=== PATIENT | female | born 1980 | race Caucasian/White ===

== ENCOUNTER 2018-01-01 19:53 | Emergency (ER) | payer OTHER ==
[~2018-01-01] VITALS: Ht 162.6 cm; Wt 92.9 kg
[~2018-01-01 19:53] MED LIST: CHIL100S PO; IBUP800T23 PO; ROBA750T3 PO; TYLCOD5S PO; ZITH250T PO
[2018-01-01 19:59] VITALS: BP 131/93; PULSE 97; RESP 20; TEMP 98.7; O2SAT 100
--- NOTE | 2018-01-01 20:39 | PD ---
HPI Chief Complaint: Bleeding Time Seen by Provider: 20:35 Travel History International Travel<30 days: No Contact w/Intl Traveler<30days: No Traveled to known affect area: No History of Present Illness HPI 37-year-old female patient with history of tubal ligation, presents to the ER today with heavy vaginal bleeding for the last 2 weeks, using multiple packs of tampons, here because she states that today she started feeling lightheaded like she was going to pass out. She denies any fevers, or other symptoms. She states that she has history of heavy menses but never this heavy before. Modifying Factors: None Associated Signs & Symptoms: Heavy vaginal bleeding for 2 weeks, lightheadedness Risk Factors: None PFSH Past Medical History ?: Unknown Social History Tobacco Use: No Allergies-Medications (Allergen,Severity, Reaction): Coded Allergies: amoxicillin (Unverified Allergy, Severe, HIVES, 07/07/17) Reported Meds & Prescriptions Reported Meds & Active Scripts Active Reported Centrum (Multiple Vitamins W/ Minerals) 1 Chew 1 Tab CHEW DAILY Review of Systems Except as stated in HPI: all other systems reviewed are Neg Physical Exam Narrative GENERAL: Well-developed young female patient currently in mild distress. Awake and oriented 3. SKIN: Focused skin assessment warm/dry. HEAD: Atraumatic. Normocephalic. EYES: Pupils equal and round. No scleral icterus. No injection or drainage. ENT: No nasal bleeding or discharge. Mucous membranes pink and moist. NECK: Trachea midline. No JVD. CARDIOVASCULAR: Regular rate and rhythm. No murmur appreciated. RESPIRATORY: No accessory muscle use. Clear to auscultation. Breath sounds equal bilaterally. GASTROINTESTINAL: Abdomen soft, mild pelvic tenderness without guarding or rebound, nondistended. Hepatic and splenic margins not palpable. GENITOURINARY: Normal external genitalia without lesions or erythema. Vaginal vault with blood but no significant drainage. Cervical os was closed without drainage. No cervical motion tenderness. Uterus nontender and nonenlarged. Bilateral adnexa nontender without masses. MUSCULOSKELETAL: No obvious deformities. No clubbing. No cyanosis. No edema. NEUROLOGICAL: Awake and alert. No obvious cranial nerve deficits. Motor grossly within normal limits. Normal speech. PSYCHIATRIC: Appropriate mood and affect; insight and judgment normal. Data Data Last Documented VS Vital Signs Date Time Temp Pulse Resp B/P (MAP) Pulse Ox O2 Delivery O2 Flow Rate FiO2 01/01/18 21:49 74 16 141/80 (100) 100 Room Air 01/01/18 19:59 98.7 Orders Orders Complete Blood Count With Diff (01/01/18 20:25) Basic Metabolic Panel (Bmp) (01/01/18 20:25) Urinalysis - C+S If Indicated (01/01/18 20:25) Ed Urine Pregnancytest Poc (01/01/18 20:25) Type And Screen (01/01/18 20:35) Ed Discharge Order (01/01/18 21:51) Labs Laboratory Tests Test 01/01/18 20:25 01/01/18 20:30 Urine Color NICOLA Urine Turbidity MOD Urine pH 5.5 Urine Specific Hope 1.027 Urine Protein 30 mg/dL Urine Glucose (UA) NEG mg/dL Urine Ketones NEG mg/dL Urine Occult Blood LARGE Urine Nitrite NEG Urine Bilirubin NEG Urine Leukocyte Esterase NEG Urine RBC 100-200 /hpf Urine WBC 0-2 /hpf Urine Squamous Epithelial Cells 0-5 /hpf Urine Mucus FEW /lpf Microscopic Urinalysis Comment CULT NOT INDICATED White Blood Count 8.8 TH/MM3 Red Blood Count 4.25 MIL/MM3 Hemoglobin 9.4 GM/DL Hematocrit 29.2 % Mean Corpuscular Volume 68.7 FL Mean Corpuscular Hemoglobin 22.2 PG Mean Corpuscular Hemoglobin Concent 32.4 % Red Cell Distribution Width 17.7 % Platelet Count 301 TH/MM3 Mean Platelet Volume 7.8 FL Neutrophils (%) (Auto) 67.9 % Lymphocytes (%) (Auto) 22.3 % Monocytes (%) (Auto) 6.0 % Eosinophils (%) (Auto) 1.8 % Basophils (%) (Auto) 2.0 % Neutrophils # (Auto) 5.9 TH/MM3 Lymphocytes # (Auto) 2.0 TH/MM3 Monocytes # (Auto) 0.5 TH/MM3 Eosinophils # (Auto) 0.2 TH/MM3 Basophils # (Auto) 0.2 TH/MM3 CBC Comment AUTO DIFF Differential Comment AUTO DIFF CONFIRMED Platelet Estimate NORMAL Platelet Morphology Comment NORMAL Spherocytes 1+ Ovalocytes 1+ Blood Urea Nitrogen 9 MG/DL Creatinine 0.79 MG/DL Random Glucose 109 MG/DL Calcium Level 8.0 MG/DL Sodium Level 137 MEQ/L Potassium Level 3.6 MEQ/L Chloride Level 106 MEQ/L Carbon Dioxide Level 25.5 MEQ/L Anion Gap 6 MEQ/L Estimat Glomerular Filtration Rate 83 ML/MIN MDM Medical Decision Making Medical Screen Exam Complete: Yes Emergency Medical Condition: Yes Medical Record Reviewed: Yes Interpretation(s) Laboratory Tests Test 01/01/18 20:25 01/01/18 20:30 Urine Color NICOLA (YELLW/STRAW) Urine Turbidity MOD (CLEAR) Urine Protein 30 mg/dL (NEG-TRACE) Urine Occult Blood LARGE (NEG) Urine RBC 100-200 /hpf (0-3) Urine Mucus FEW /lpf (OCC) Hemoglobin 9.4 GM/DL (11.6-15.3) Hematocrit 29.2 % (35.0-46.0) Mean Corpuscular Volume 68.7 FL (80.0-100.0) Mean Corpuscular Hemoglobin 22.2 PG (27.0-34.0) Red Cell Distribution Width 17.7 % (11.6-17.2) Spherocytes 1+ (NORMAL) Ovalocytes 1+ (NORMAL) Random Glucose 109 MG/DL (74-106) Calcium Level 8.0 MG/DL (8.5-10.1) Estimat Glomerular Filtration Rate 83 ML/MIN (>89) Differential Diagnosis Heavy vaginal bleeding, cramping: Dysfunctional uterine bleeding versus threatened AB versus ectopic Narrative Course Hemoglobin is 9. Vital signs are stable in the ER. Pelvic exam shows some blood but not heavily bleeding currently. At this point, my plan would be to release her with follow-up to [facility]. We will try some OCP for hormonal control. Return for any worsening in bleeding or new symptoms as needed. The plan has been discussed with her and she states understanding. Diagnosis Primary Impression: Dysfunctional uterine bleeding Med/Other Pt SpecificInfo: Prescription(s) given Scripts Norethindrone-Ethinyl Estradiol (Ortho-Novum ) 1-35 Mg-Mcg Tab 1 TAB PO DAILY for Control, #1 PACK 0 Refills Prov: Amber Rausch MD 01/01/18 Disposition: 01 DISCHARGE HOME Condition: Stable Amber Rausch MD Jan 01, 2018 20:39
[2018-01-01] MEDS ORDERED: CENTCHW4 CHEW (20:43)
[2018-01-01 20:52] LABS: AUTOMATED NEUTROPHIL # 5.9 TH/MM3 (1.8-7.7); BASOPHIL # 0.2 TH/MM3 (0-0.2); EOSINOPHIL # 0.2 TH/MM3 (0-0.4); EOSINOPHIL % 1.8 % (0.0-4.0); HEMATOCRIT 29.2 % (35.0-46.0); HEMOGLOBIN 9.4 GM/DL (11.6-15.3); LYMPH % 22.3 % (9.0-44.0); MEAN CELL VOLUME 68.7 FL (80.0-100.0); MEAN CORPUSCULAR HEMOGLOBIN 22.2 PG (27.0-34.0); MEAN CORPUSCULAR HGB CONC 32.4 % (32.0-36.0); MEAN PLATELET VOLUME 7.8 FL (7.0-11.0); MONOCYTE # 0.5 TH/MM3 (0-0.9); NEUT % 67.9 % (16.0-70.0); PLATELET COUNT 301 TH/MM3 (150-450); RED BLOOD COUNT 4.25 MIL/MM3 (4.00-5.30); RED CELL DISTRIBUTION WIDTH 17.7 % (11.6-17.2); WHITE BLOOD COUNT 8.8 TH/MM3 (4.0-11.0)
[2018-01-01 21:03] LABS: BICARBONATE 25.5 MEQ/L (21.0-32.0)
[2018-01-01 21:05] LABS: BILIRUBIN, URINE NEG (NEG); BLOOD, URINE LARGE (NEG); GLUCOSE,URINE NEG (NEG); KETONE, URINE NEG (NEG); NITRITE,URINE NEG (NEG); PH, URINE 5.5 (5.0-8.5); URINE LEUKOCYTE ESTERASE NEG (NEG)
[2018-01-01 21:07] LABS: CREATININE 0.79 MG/DL (0.50-1.00)
[2018-01-01 21:16] LABS: MUCUS URINE FEW /lpf (OCC); RBC, URINE 100-200 /hpf (0-3); SQUAMOUS EPITHELIAL CELL URINE 0-5 /hpf (0-5); URINE COLOR AMBER (YELLW/STRAW)
[2018-01-01 21:17] LABS: WBC, URINE 0-2 /hpf (0-5)
[2018-01-01 21:33] LABS: OVALOCYTES 1+ (NORMAL)
[2018-01-01 21:34] LABS: SPHEROCYTES 1+ (NORMAL)
[2018-01-01 21:49] VITALS: BP 141/80; PULSE 74; RESP 16; O2SAT 100
[2018-01-01] MEDS ORDERED: ORTH1TAB PO (21:53)
== END 2018-01-01 22:04 | disposition home or self-care (01) ==
LOC: PHED 19:53
DX: N93.8 Other specified abnormal uterine and vaginal bleeding (principal); Z88.1 Allergy status to other antibiotic agents
CPT/HCPCS: 80048; 81001; 84703; 85025; 86850; 86900; 86901; 99284

== ENCOUNTER 2018-02-17 08:24 | Emergency (ER) | payer OTHER ==
[~2018-02-17] VITALS: Ht 162.6 cm; Wt 93.0 kg
[~2018-02-17 08:24] MED LIST changes: +CENTCHW4 CHEW; -CHIL100S PO; -IBUP800T23 PO; +ORTH1TAB PO; -ROBA750T3 PO; -TYLCOD5S PO; -ZITH250T PO
[2018-02-17 08:26] VITALS: BP 150/83; PULSE 78; RESP 16; TEMP 98.4; O2SAT 99
[2018-02-17] MEDS ORDERED: ZOFR4TAB3 SL (08:46)
--- NOTE | 2018-02-17 08:47 | PD ---
HPI Chief Complaint: GI Complaint Time Seen by Provider: 08:38 Travel History International Travel<30 days: No Contact w/Intl Traveler<30days: No Traveled to known affect area: No History of Present Illness HPI 37-year-old female is complaining of vomiting and diarrhea. Her symptoms started yesterday. She has been able to hold down liquids but has trouble eating. She has had some loose stools. She has not had fever. Apparently multiple people ordered workplace have been sick with a similar illness. She is generally healthy on no medications PFSH Past Medical History Anemia: Yes Reproductive: Yes ([employer]: 2ND ) ?: Not : 8 Para: 3 Miscarriage: 5 Ovarian Cysts: Yes Tubal Ligation: Yes Social History Alcohol Use: Yes ("SOCIALLY") Tobacco Use: No Substance Use: No Allergies-Medications (Allergen,Severity, Reaction): Coded Allergies: amoxicillin (Unverified Allergy, Severe, HIVES, 02/17/18) Reported Meds & Prescriptions Reported Meds & Active Scripts Active Ortho-Novum (Norethindrone-Ethinyl Estradiol) 1-35 Mg-Mcg Tab 1 Tab PO DAILY Reported Centrum (Multiple Vitamins W/ Minerals) 1 Chew 1 Tab CHEW DAILY Review of Systems General / Constitutional: No: Fever, Chills Eyes: No: Diploplia, Blurred Vision HENT: No: Headaches, Vertigo Cardiovascular: No: Chest Pain or Discomfort, Palpitations Respiratory: No: Cough Gastrointestinal: Positive: Nausea, Diarrhea Genitourinary: No: Urgency, Frequency Musculoskeletal: No: Myalgias, Arthralgias Skin: No Rash Hematologic/Lymphatic: No: Easy Bruising Physical Exam Narrative GENERAL: Well-developed female SKIN: Focused skin assessment warm/dry. HEAD: Atraumatic. Normocephalic. EYES: Pupils equal and round. No scleral icterus. No injection or drainage. ENT: No nasal bleeding or discharge. Mucous membranes pink and moist. NECK: Trachea midline. No JVD. CARDIOVASCULAR: Regular rate and rhythm. No murmur appreciated. RESPIRATORY: No accessory muscle use. Clear to auscultation. Breath sounds equal bilaterally. GASTROINTESTINAL: Abdomen soft, non-tender, nondistended. Hepatic and splenic margins not palpable. MUSCULOSKELETAL: No obvious deformities. No clubbing. No cyanosis. No edema. NEUROLOGICAL: Awake and alert. No obvious cranial nerve deficits. Motor grossly within normal limits. Normal speech. PSYCHIATRIC: Appropriate mood and affect; insight and judgment normal. Data Data Last Documented VS Vital Signs Date Time Temp Pulse Resp B/P (MAP) Pulse Ox O2 Delivery O2 Flow Rate FiO2 02/17/18 08:26 98.4 78 16 150/83 (105) 99 MDM Medical Decision Making Medical Screen Exam Complete: Yes Emergency Medical Condition: Yes Medical Record Reviewed: Yes Differential Diagnosis Differential includes gastroenteritis, dehydration, food poisoning Narrative Course Patient is not showing clinical signs of dehydration and has been able to hold down fluids. I do not think lab work or IV fluids are warranted at this time. I will prescribe some Zofran in case she has vomiting at home. I will recommend that she be off work until Wednesday Diagnosis Primary Impression: Gastroenteritis Departure Forms: Tests/Procedures, Work Release Enter return to work date: Feb 19, 2018 Scripts Ondansetron Odt (Zofran Odt) 4 Mg Tab 4 MG SL Q6HR Y for Nausea/Vomiting, #10 TAB 0 Refills Prov: Reymundo Rose MD 02/17/18 Disposition: DISCHARGE HOME Condition: Stable Reymundo Rose MD Feb 17, 2018 08:47
== END 2018-02-17 09:00 | disposition home or self-care (01) ==
LOC: PHED 08:24
DX: K52.9 Noninfective gastroenteritis and colitis, unspecified (principal)
CPT/HCPCS: 99283

== ENCOUNTER 2018-04-21 15:44 | Emergency (ER) | payer OTHER ==
[~2018-04-21] VITALS: Ht 160 cm; Wt 91.9 kg
[~2018-04-21 15:44] MED LIST changes: +ZOFR4TAB3 SL
[2018-04-21 16:10] VITALS: BP 128/72; TEMP 98.4; O2SAT 98
[2018-04-21 16:41] VITALS: BP 128/72; PULSE 82; RESP 16; TEMP 98.4; O2SAT 98
--- NOTE | 2018-04-21 17:54 | PD ---
HPI Chief Complaint: Cold / Flu Symptoms Time Seen by Provider: 17:35 Travel History International Travel<30 days: No Contact w/Intl Traveler<30days: No Traveled to known affect area: No History of Present Illness HPI 37-year-old female here with reported productive cough 1 week. She reports she has yellow sputum. Subjective fevers. No chest pain or shortness of breath. Symptom severity is moderate. Unrelieved by [id number] cough and cold medications. PFSH Past Medical History Anemia: Yes Cardiovascular Problems: Yes (htn on meds) Reproductive: Yes ([employer]: 2ND ) Tetanus Vaccination: > 5 Years Influenza Vaccination: No ?: Not LMP: 12/12/17 : 8 Para: 3 Miscarriage: 5 Ovarian Cysts: Yes Tubal Ligation: Yes Social History Alcohol Use: Yes ("SOCIALLY") Tobacco Use: Yes (5 cigs daily) Substance Use: No Allergies-Medications (Allergen,Severity, Reaction): Coded Allergies: amoxicillin (Unverified Allergy, Severe, HIVES, 04/21/18) Uncoded Allergies: all cillins (Allergy, Mild, rash, 04/21/18) Reported Meds & Prescriptions Reported Meds & Active Scripts Active Reported Centrum (Multiple Vitamins W/ Minerals) 1 Chew 1 Tab CHEW DAILY Review of Systems Except as stated in HPI: all other systems reviewed are Neg General / Constitutional: Positive: Fever Eyes: No: Visual changes HENT: No: Headaches Cardiovascular: No: Chest Pain or Discomfort Respiratory: Positive: Cough Gastrointestinal: No: Abdominal Pain Physical Exam Narrative GENERAL: Alert and well-appearing 37-year-old female SKIN: Warm and dry. HEAD: Normocephalic. EYES: No injection or drainage. ENT: Mild pharyngeal erythema without tonsillar hypertrophy or exudate NECK: Supple, trachea midline. No JVD or lymphadenopathy. CARDIOVASCULAR: Regular rate and rhythm without murmurs, gallops, or rubs. RESPIRATORY: Breath sounds equal bilaterally. No accessory muscle use. Rhonchorous cough GASTROINTESTINAL: Abdomen soft, non-tender, nondistended. MUSCULOSKELETAL: No cyanosis, or edema. BACK: Nontender without obvious deformity. No CVA tenderness. Data Data Last Documented VS Vital Signs Date Time Temp Pulse Resp B/P (MAP) Pulse Ox O2 Delivery O2 Flow Rate FiO2 04/21/18 16:41 98.4 82 16 128/72 (90) 98 [facility] Medical Decision Making Medical Screen Exam Complete: Yes Emergency Medical Condition: Yes Differential Diagnosis Bronchitis, pneumonia, viral URI Narrative Course 37-year-old female here with reported productive cough 1 week. She is reporting yellow sputum. She has a rhonchorous cough. She will be treated with azithromycin and Tessalon Perles. Diagnosis Primary Impression: Bronchitis Referrals: Primary Care Physician Additional Instructions: Medication as directed. Follow-up with her primary doctor. Scripts Benzonatate (Tessalon Perles) 100 Mg Cap 200 MG PO TID Y for COUGH, #12 CAP 0 Refills Prov: Adeola Hill 04/21/18 Azithromycin (Azithromycin) 250 Mg Tab 250 MG PO DIRECTED for Infection, #6 TAB 0 Refills Take 2 tabs (500 mg) on day 1 then 1 tab daily x 4 days. Prov: Adeola Hill 04/21/18 Disposition: 01 DISCHARGE HOME Condition: Stable Adeola Hill April 21, 2018 17:54
[2018-04-21] MEDS ORDERED: AZIT250T3 PO (17:59)
[2018-04-21] MEDS ORDERED: BENZ100 PO (17:59)
== END 2018-04-21 18:08 | disposition home or self-care (01) ==
LOC: PHEFT 15:44
DX: J40 Bronchitis, not specified as acute or chronic (principal); I10 Essential (primary) hypertension; F17.210 Nicotine dependence, cigarettes, uncomplicated
CPT/HCPCS: 99283

== ENCOUNTER 2018-05-02 07:44 | Emergency (ER) | payer OTHER ==
[~2018-05-02 07:44] MED LIST changes: +AZIT250T3 PO; +BENZ100 PO; -ORTH1TAB PO; -ZOFR4TAB3 SL
[2018-05-02 07:49] VITALS: BP 132/92; PULSE 108; RESP 16; TEMP 98.2; O2SAT 100
[2018-05-02] MEDS ORDERED: KETOROLAC TROMETHAMINE 60 MG/2 ML (IM) VIAL IM ONE (08:30)
--- NOTE | 2018-05-02 08:30 | PD ---
HPI Chief Complaint: Back/ Neck Pain or Injury Time Seen by Provider: 08:23 Travel History International Travel<30 days: No Contact w/Intl Traveler<30days: No Traveled to known affect area: No History of Present Illness HPI This 37-year-old female is complaining of quite severe back pain. She is having some mild discomfort for a couple of days. Early this morning around 4 AM she is a says she picked something up wrong and had a pop in her back and now is having quite severe pain in the low back going down the left leg. She has not had pain like this before. She feels more comfortable standing than she does sitting. She has not taken anything for pain. She says there is no chance of . She has noted some numbness in the left hip PFS Past Medical History Anemia: Yes Cardiovascular Problems: Yes (htn on meds) Hypertension: Yes Reproductive: Yes ([employer]OR: 2ND ) Tetanus Vaccination: > 5 Years Influenza Vaccination: No ?: Not LMP: 04/15/18 : 8 Para: 3 Miscarriage: 5 Ovarian Cysts: Yes Tubal Ligation: Yes Social History Alcohol Use: Yes (Socially) Tobacco Use: Yes (1 pack every 2 weeks ) Substance Use: No Allergies-Medications (Allergen,Severity, Reaction): Coded Allergies: amoxicillin (Verified Allergy, Severe, HIVES, 05/02/18) Uncoded Allergies: all cillins (Allergy, Mild, rash, 04/21/18) Reported Meds & Prescriptions Reported Meds & Active Scripts Active Reported Centrum (Multiple Vitamins W/ Minerals) 1 Chew 1 Tab CHEW DAILY Review of Systems Except as stated in HPI: all other systems reviewed are Neg Physical Exam Narrative GENERAL: Patient appears quite uncomfortable with her pain SKIN: Focused skin assessment warm/dry. HEAD: Atraumatic. Normocephalic. EYES: Pupils equal and round. No scleral icterus. No injection or drainage. ENT: No nasal bleeding or discharge. Mucous membranes pink and moist. NECK: Trachea midline. No JVD. CARDIOVASCULAR: Regular rate and rhythm. No murmur appreciated. RESPIRATORY: No accessory muscle use. Clear to auscultation. Breath sounds equal bilaterally. GASTROINTESTINAL: Abdomen soft, non-tender, nondistended. Hepatic and splenic margins not palpable. MUSCULOSKELETAL: No obvious deformities. No clubbing. No cyanosis. No edema. There is tenderness of the low back. There is a lot of pain with straight leg raising on the left. She is able to plantar dorsiflex the feet. Sensation appears intact NEUROLOGICAL: Awake and alert. No obvious cranial nerve deficits. Motor grossly within normal limits. Normal speech. PSYCHIATRIC: Appropriate mood and affect; insight and judgment normal. Data Data Last Documented VS Vital Signs Date Time Temp Pulse Resp B/P (MAP) Pulse Ox O2 Delivery O2 Flow Rate FiO2 05/02/18 07:49 98.2 108 16 132/92 (105) 100 Orders Orders Ketorolac Inj (Toradol Inj) (05/02/18 08:30) Spine, Lumbar - Ltd (Ap & Lat) (05/02/18 08:27) MDM Medical Decision Making Medical Screen Exam Complete: Yes Emergency Medical Condition: Yes Medical Record Reviewed: Yes Differential Diagnosis Differential includes herniated disc, acute radiculopathy Narrative Course X-ray shows a loss of height at L5-S1 which could be due to herniated disc. Patient will be released with prescriptions for [place] and Flexeril Diagnosis Primary Impression: Acute lumbar radiculopathy Scripts Cyclobenzaprine (Flexeril) 10 Mg Tab 10 MG PO TID for Muscle Spasm, #30 TAB 0 Refills Prov: Reymundo Rose MD 05/02/18 Hydrocodone-Acetaminophen ([place]) 7.5-325 mg Tab 1 TAB PO Q4H Y for PAIN, #12 TAB 0 Refills Prov: Reymundo Rose MD 05/02/18 Disposition: 01 DISCHARGE HOME Condition: Stable Reymundo Rose MD May 02, 2018 08:30
--- NOTE | 2018-05-02 09:36 | RADRPT ---
EXAM DATE: 05/02/2018 9:27 AM EDT AGE/SEX: 37 years / Female INDICATIONS: Severe lower back pain CLINICAL DATA: This is the patient's initial encounter. Patient reports that signs and symptoms have been present for 1 day and indicates a pain score of 10/10. MEDICAL/SURGICAL HISTORY: None. None. COMPARISON: . FINDINGS: There are 5 lumbar type vertebral bodies. There is minimal loss of disc space height at L5-S1. Minima l Schmorl's type endplate depression is seen at L4. There are mild degenerative changes in the facets . The SI joints are normal. CONCLUSION: Loss of disc space height L5-S1. This may represent an acute disc herniation. MRI would be of benefit . Electronically signed by: Cesar Berg MD 05/02/2018 9:34 AM EDT
[2018-05-02] MEDS ORDERED: HYDR-3288 PO (09:55)
[2018-05-02] MEDS ORDERED: CYCL10TA PO (09:55)
== END 2018-05-02 10:06 | disposition home or self-care (01) ==
LOC: PHED 07:44
DX: M54.16 Radiculopathy, lumbar region (principal); D64.9 Anemia, unspecified; I10 Essential (primary) hypertension; F17.200 Nicotine dependence, unspecified, uncomplicated; Z88.0 Allergy status to penicillin
CPT/HCPCS: 72100; 96372; 99283; J1885